=== PATIENT | female | born 1995 | race Caucasian/White ===

== ENCOUNTER 2020-11-07 14:33 | Emergency (ER) | payer BC, SELFPAY ==
--- NOTE | ~2020-11-07 | XR_ITS ---
EXAMINATION: XR chest 2V EXAM DATE: 11/07/2020 16:06 INDICATION: dizziness; denies card/lung hx; non smoker. TECHNIQUE: Frontal and lateral projections of the chest obtained and reviewed. There is no prior venessa dy for comparison. FINDINGS: The lungs are clear. There are no pleural effusions. The cardiomediastinal silhouette is within normal limits. There is no pneumothorax suspected. The bones and soft tissues are unremarkab le. IMPRESSION: No acute cardiopulmonary findings. Reviewed, dictated and finalized at location B.
[2020-11-07 14:36] VITALS: BP 121/77; PULSE 88; RESP 15; TEMP 37.2; O2SAT 99
--- NOTE | 2020-11-07 15:51 | ECG_ITS ---
Measurements Intervals [place] Rate: 76 P: 59 NM: 130 QRS: 74 QRSD: 81 T: 12 QT: 361 QTc: 408 Interpretive Statements SINUS RHYTHM POSSIBLE LEFT ATRIAL ENLARGEMENT INCOMPLETE RIGHT BUNDLE BRANCH BLOCK BASELINE ARTIFACT- I, II, III, AVR, AVL, AVF, V1-V6 BORDERLINE ECG Electronically Signed On 11-07-2020 17:06:50 CDT by Parviz Sparks D.O.
--- NOTE | 2020-11-07 16:03 | ED.ANXIETY ---
HPI - Anxiety General Chief Complaint: Anxiety Stated Complaint: Mental Issues Time Seen by Provider: 11/07/20 15:15 Source: patient and family Mode of arrival: ambulatory Limitations: no limitations History of Present Illness HPI narrative: This is a 25 year old female that presents to the ER for increasing anxiety over the last couple of months. Reports history of anxiety and depression. Reports she has been on multiple medications for this, none which seem to help. She does also currently see a counselor. She has been having a lot of panic attacks lately. She also reports that she constantly feels nauseous, dizzy, and gets headaches. Reports she feels like her heart is going to beat out of her chest. She does report products that she would be better off if she was not here. Has no active plan. No history of previous suicide attempts. She has been hospitalized at a psychiatric facility in the past. Denies visual or auditory hallucinations. Related Data Home Medications Medication Instructions Recorded Confirmed alprazolam 11/07/20 Allergies Allergy/AdvReac Type Severity Reaction Status Date / Time No Known Allergies Allergy Verified 11/07/20 14:40 Review of Systems Review of Systems: CONSTITUTIONAL: Denies fever CARDIOVASCULAR: Denies chest pain RESPIRATORY: Denies dyspnea. GASTROINTESTINAL: Reports abdominal pain, nausea. Denies vomiting GENITOURINARY: Denies dysuria NEUROLOGIC: Reports headache PSYCHIATRIC: Reports anxiety and depression. All systems reviewed & are unremarkable except as noted in HPI and below PMFSH Past Medical History Medical History (Updated 11/07/20 @ 20:07 by Lesli Dai PA-C) History of anxiety History of depression Social History Social History Substance use type: does not use Exam Narrative: GENERAL: Well-appearing, well-nourished, and in no acute distress. HEAD: Normocephalic, atraumatic. EYES: EOMI. ENT: Nares clear, no rhinorrhea or epistaxis. Mucous membranes moist. Oropharynx without tonsillar hypertrophy exudate or other lesions. CHEST: Clear to auscultation. No respiratory distress. No wheezes rales or rhonchi HEART: Regular rate and rhythm. No murmur heard. Normal peripheral pulses. ABDOMEN: Soft, nontender, nondistended, normal active bowel sounds. EXTREMITIES: Normal range of motion. No edema. SKIN: Warm, dry, no rash. NEURO: No focal deficits. Alert and oriented x3. PSYCH: Tearful. Anxious Course Consultations Consultation #1: Crisis came to evaluate the patient. There is a safety plan in place and patient is to follow-up outpatient with [facility] for further management Date: 11/07/20 Time: 20:05 Vital Signs Vital signs: Vital Signs Temperature 98.9 F 11/07/20 14:36 Pulse Rate 88 11/07/20 14:36 Respiratory Rate 15 11/07/20 14:36 Blood Pressure 121/77 11/07/20 14:36 Pulse Oximetry 99 11/07/20 14:36 Temperature 98.9 F 11/07/20 14:36 Pulse Rate 68 11/07/20 19:15 Respiratory Rate 18 11/07/20 19:15 Blood Pressure 110/67 11/07/20 19:15 Pulse Oximetry 100 11/07/20 19:15 MDM - Anxiety MDM Narrative Medical decision making narrative: Patient presents the emergency department for ongoing anxiety. Reports longstanding history of anxiety and depression. She has been on several medications for this and does not feel like any of them helped her. Reports vague suicidal thoughts. No active plan. Patient does have a good support system. She also has a number of somatic complaints including headaches, abdominal pain, dizziness. Also reports she has been having trouble sleeping. Her vitals are stable. She is afebrile and nontoxic-appearing. CBC is without leukocytosis. Does show some hemoconcentration. Metabolic panel also with likely mild dehydration. TSH is normal. UA without evidence of infection. Drug screen is negative. Chest x-ray is normal. EKG without concerning changes. Bedside pre
[2020-11-07] MEDS: LORazepam (*CRX) 1 MG TABLET PO (16:15)
[2020-11-07 16:31] LABS: Add Urine Microscopic? NO; Appearance Urine Clear (Clear); Bilirubin Urine Negative (Negative); Blood Urine Negative (Negative); Color Urine Straw (Yellow); Glucose Urine UA Negative (Negative); Ketones Urine Negative (Negative); Leukocyte Esterase Ur Negative LEU/UL (Negative); Nitrate Urine Negative (Negative); Protein Urine Negative (Negative); Specific Grav Ur 1.005 (1.001-1.035); Urobilinogen Urine Negative mg/dL (<2.0)
[2020-11-07 16:50] LABS: Basophils Percent Auto 0.5 % (0.2-1.2); Eosinophils Percent Auto 0.5 % (0-4.4); Hematocrit 46.3 % (37.0-47.0); Hemoglobin 15.8 g/dL (12.0-15.0); Immature Granulocyte Absolute 0.02 K/mm3 (0.00-0.031); Immature Granulocyte Percent A 0.2 % (0-0.5); Lymphocytes Absolute Auto 2.55 K/mm3 (0.9-3.2); Lymphocytes Percent Auto 31.4 % (18.3-44.2); Mean Corpuscular HGB Conc 34.1 g/dl (32-36); Mean Corpuscular Hemoglobin 30.7 pg (26-34); Mean Corpuscular Volume 90.1 fl (80-100); Mean Platelet Volume 9.4 fl (7.4-10.4); Monocytes Absolute Auto 0.6 K/mm3 (0.1-0.6); Monocytes Percent Auto 6.8 % (2.6-8.5); Neutrophils Absolute Auto 4.9 K/mm3 (1.3-6.7); Neutrophils Percent Auto 60.6 % (45.5-73.1); Platelet Count Result 275 k/mm3 (150-375); Red Blood Count 5.14 M/mm3 (4.2-5.4); Red Cell Distribution Width 11.9 % (11.5-14.5); White Blood Count 8.1 K/mm3 (4.5-10.0)
[2020-11-07 17:02] LABS: Alanine Aminotransferase 17 U/L (4-35); Albumin Level 4.4 g/dL (3.5-5.1); Alkaline Phosphatase 59 U/L (38-126); Anion Gap 9 mmol/L (8-16); Aspartate Amino Transferase 25 U/L (14-36); Bilirubin,Total 1.6 mg/dL (0.2-1.3); Blood Urea Nitrogen 10 mg/dL (7-17); Calcium 9.6 mg/dL (8.4-10.2); Carbon Dioxide 21 mmol/L (22-30); Chloride 106 mmol/L (98-107); Estimated CRCL calculation 85 ml/min; Estimated Glomerular Filt Rate > 60; Glucose 89 mg/dL (65-110); Lipase 160 U/L (23-300); Potassium 3.9 mmol/L (3.4-5.0); Sodium 136 mmol/L (137-145)
[2020-11-07 17:03] LABS: Amphetamine Screen Urine Negative (Negative); Barbiturate Screen Urine Negative (Negative); Benzodiazepines Screen Urine Negative (Negative); Cannabinoid Screen Urine Negative (Negative); Cocaine Screen Urine Negative (Negative); Methadone Screen Urine Negative (Negative); Opiate Screen Urine Negative (Negative); Phencyclidine Screen Urine Negative (Negative)
[2020-11-07 17:07] LABS: Ethanol < 10 mg/dL (<10)
[2020-11-07 17:16] VITALS: BP 105/69; PULSE 66; RESP 18; O2SAT 99
[2020-11-07 19:15] VITALS: BP 110/67; PULSE 68; RESP 18; O2SAT 100
--- NOTE | 2020-11-07 19:20 | PC.NURSE ---
Report received from TYLER Thomas. Crisis remains at bedside.
== END 2020-11-07 20:46 | disposition home or self-care (01) ==
PROVIDERS: Physician Assistant; Emergency Provider Emergency Medicine; PCP Physician Assistant Medical
DX: F41.9 Anxiety disorder, unspecified (principal); F32.9 Major depressive disorder, single episode, unspecified; I45.10 Unspecified right bundle-branch block; R94.31 Abnormal electrocardiogram [ECG] [EKG]
CPT/HCPCS: 36415; 71046; 80053; 80307; 81003; 81025; 83690; 84443; 85025; 93005; 99284; A9270